=== PATIENT | female | born 2000 | race Caucasian/White ===

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

== ENCOUNTER 2021-02-11 00:03 | Emergency (ER) | payer SELFPAY ==
[2021-02-11 01:26] LABS: Urine Blood Negative (Negative); Urine Glucose Negative (Negative); Urine Protein Negative (Negative); Urine Specific Gravity 1.025 (1.005-1.030); Urine pH 6.5 (5.0-7.0)
[2021-02-11 01:29] LABS: Urine Specific Gravity/Preg 1.025 (1.005-1.030)
[2021-02-11 01:34] LABS: Absolute Lymphocytes (CBC) 2.8 K/uL (0.7-4.9); Basophils % 0.8 % (0-1.3); Hematocrit 36.5 % (36.0-45.0); Lymphocytes % 24.6 % (15.3-44.8); MPV 8.5 fL (7.6-11.3); RBC Red Blood Cell Count 4.49 M/uL (3.86-4.86)
--- NOTE | 2021-02-11 02:52 | EDPHYS ---
Physician Documentation [facility] Name: Maryanne Luna Age: 20 yrs Sex: Female : 2000 Arrival Date: 02/11/2021 Time: 00:06 Bed 20 Private MD: ED Physician Rober Hernandez HPI: 02/11 00:39 This 20 yrs old Female presents to ER via Ambulatory with complaints of Sore jmm Throat. 00:39 The patient presents with sore throat. Onset: The symptoms/episode began/occurred jmm gradually. Modifying factors: The symptoms are alleviated by nothing, the symptoms are aggravated by nothing. Associated signs and symptoms: Pertinent positives: chills, Pertinent negatives fever. Patient also complains of 1 month of vaginal bleeding with clotting. This is never happened to her before. Denies pelvic pain.. [employer]: 00:36 LMP 01/23/2021 em Historical: - Allergies: 00:36 Amoxicillin; em - PMHx: 00:36 None; em - PSHx: 00:36 Tonsillectomy; em - Immunization history:: Client reports having NOT received the Covid vaccine. - Social history:: Smoking status: Patient denies any tobacco usage or history of. ROS: 00:39 Constitutional: Negative for fever, chills, and weight loss. jmm 00:39 Cardiovascular: Negative for chest pain, palpitations, and edema, Respiratory: Negative for shortness of breath, cough, wheezing, and pleuritic chest pain. 00:39 ENT: Positive for sore throat. 00:39 : Positive for vaginal bleeding. 00:39 All other systems are negative. Exam: 00:39 Constitutional: This is a well developed, well nourished patient who is awake, alert, jmm and in no acute distress. Head/Face: atraumatic. Eyes: EOMI, no conjunctival erythema appreciated 00:39 Neck: Trachea midline, Supple Chest/axilla: Normal chest wall appearance and motion. Cardiovascular: Regular rate and rhythm. No edema appreciated Respiratory: Normal respirations, no respiratory distress appreciated Abdomen/GI: Non distended, soft Back: Normal ROM Skin: General appearance color normal MS/ Extremity: Moves all extremities, no obvious deformities appreciated, no edema noted to the lower extremities Neuro: Awake and alert, normal gait Psych: Behavior is normal, Mood is normal, Patient is cooperative and pleasant 00:39 ENT: Posterior pharynx: erythema, that is mild. Vital Signs: 00:34 BP 132 / 61; Pulse 87; Resp 18; Temp 97.7; Pulse Ox 97% on R/A; Weight 92.99 kg; Height em 6 ft. 0 in. (182.88 cm); 02:50 BP 128 / 60; Pulse 80; Resp 18; Pulse Ox 99% ; ea 00:34 Body Mass Index 27.80 (92.99 kg, 182.88 cm) em MDM: 01:14 Patient medically screened. [facility] 02:51 Data reviewed: vital signs, nurses notes. Counseling: I had a detailed discussion with [facility] the patient and/or guardian regarding: the historical points, exam findings, and any diagnostic results supporting the discharge/admit diagnosis, lab results, the need for outpatient follow up, to return to the emergency department if symptoms worsen or persist or if there are any questions or concerns that arise at home. ED course: Patient is alert nontoxic in appearance in the ED. Patient advised to follow with [employer] for vaginal bleeding. Patient has normal vital signs, H\T\H is normal. Patient is otherwise given strict return precautions. Patient understood and agrees plan of care. 02/11 00:38 Order name: Strep 02/11 00:39 Order name: Group A Streptococcus Rapid Sc; Complete Time: 02:37 EDMI 02/11 01:03 Order name: CBC with Diff; Complete Time: 01:36 em 02/11 01:25 Order name: Urine --Ancillary (enter results); Complete Time: 01:32 tt3 02/11 01:26 Order name: Urine Dipstick-Ancillary; Complete Time: 01:32 EDMI 02/11 01:17 Order name: Urine Test (obtain specimen); Complete Time: 01:25 [facility] 02/11 01:49 Order name: SARS-COV-2 RT PCR; Complete Time: 01:51 EDMI 02/11 02:22 Order name: Throat Culture EDMI Administered Medications: 02:52 Drug: Decadron - Dexamethasone 10 mg Route: IVP; Site: right antecubital; ea 03:04 Follow up: Response: No adverse reaction ea Disposition: 05:35 Co-signature as Attending Physician, Rober Hernandez MD. [email or web address] Disposition Summary: 08/22/21 02:52 Discharge Ordered Location: Home jm Condition: Stable jmm Diagnosis - Acute pharyngitis, unspecified jmm - Abnormal uterine and vaginal bleeding, unspecified jmm Followup: jmm - With: Private Physician - When: 2 - 3 days - Reason: Recheck today's complaints, Continuance of care, Re-evaluation by your physician Discharge Instructions: - Discharge Summary Sheet jmm - Abnormal Uterine Bleeding jmm - Pharyngitis jm Forms: - Medication Reconciliation Form jmm - Thank You Letter jmm - Antibiotic Education jmm - Prescription Opioid Use jmm Signatures: Dispatcher [employer] EDMS Theodore Fitzpatrick PA PA jmm Munoz, Edgar, RN RN Leonor Castro RN Rober Barnes ea, MD MD [email or web address] Corrections: (The following items were deleted from the chart) 00:37 00:36 Allergies: No Known Allergies; em em 00:47 00:39 CORONAVIRUS+MR.LAB.BRZ ordered. EDMI EDMS
--- NOTE | 2021-02-11 02:52 | ER ---
Nurse's Notes [facility] Name: Maryanne Luna Age: 20 yrs Sex: Female : 2000 Arrival Date: 02/11/2021 Time: 00:06 Bed 20 Private MD: Diagnosis: Acute pharyngitis, unspecified;Abnormal uterine and vaginal bleeding, unspecified Presentation: 02/11 00:34 Chief complaint: Patient states: sore throat for 1 week, denies fever, also reports em period for 1 month, LMP 01/23. Coronavirus screen: Client denies travel out of the [place] in the last 14 days. Ebola Screen: Patient negative for fever greater than or equal to 101.5 degrees Fahrenheit, and additional compatible Ebola Virus Disease symptoms Patient denies exposure to infectious person. Patient denies travel to an Ebola-affected area in the 21 days before illness onset. No symptoms or risks identified at this time. Initial Sepsis Screen: Does the patient meet any 2 criteria? No. Patient's initial sepsis screen is negative. Does the patient have a suspected source of infection? No. Patient's initial sepsis screen is negative. Risk Assessment: Do you want to hurt yourself or someone else? Patient reports no desire to harm self or others. Onset of symptoms was February 11, 2021. 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 - Social history:: Smoking status: Patient denies any tobacco usage or history of. Screenin:26 Abuse screen: Denies threats or abuse. Nutritional screening: No deficits noted. ea Tuberculosis screening: No symptoms or risk factors identified. Fall Risk IV access (20 points). Assessment: 00:30 General: Appears in no apparent distress. Behavior is calm, cooperative, appropriate ea for age. Neuro: Level of Consciousness is awake, alert, obeys commands, Oriented to person, place, time. Cardiovascular: Patient's skin is warm and dry. Respiratory: Airway is patent Respiratory effort is even, unlabored, Respiratory pattern is regular, symmetrical. EENT: Reports pain in throat. Derm: Skin is pink, warm \T\ dry. 02:30 Reassessment: Patient and/or family updated on plan of care and expected duration. Pain ea level reassessed. Patient is alert, oriented x 3, equal unlabored respirations, skin warm/dry/pink. 03:02 Reassessment: Patient and/or family updated on plan of care and expected duration. Pain ea level reassessed. Patient is alert, oriented x 3, equal unlabored respirations, skin warm/dry/pink. Discharge instruction given to patient verbalized the understanding of isntruction. Vital Signs: 00:34 BP 132 / 61; Pulse 87; Resp 18; Temp 97.7; Pulse Ox 97% on R/A; Weight 92.99 kg; Height em 6 ft. 0 in. (182.88 cm); 02:50 BP 128 / 60; Pulse 80; Resp 18; Pulse Ox 99% ; ea 00:34 Body Mass Index 27.80 (92.99 kg, 182.88 cm) em ED Course: 00:06 Patient arrived in ED. bp1 00:36 Triage completed. em 00:36 Arm band placed on. em 00:57 Lakshmi Chase, RN is Primary Nurse. bs2 00:59 Theodore Fitzpatrick PA is PHCP. jm 01:00 Rober Hernandez MD is Attending Physician. jmm 01:27 Patient has correct armband on for positive identification. Bed in low position. Call ea light in reach. Side rails up X2. 01:27 Inserted saline lock: 20 gauge in right antecubital area, using aseptic technique. ea Blood collected. 03:02 No provider procedures requiring assistance completed. IV discontinued, intact, ea bleeding controlled, No redness/swelling at site. Pressure dressing applied. Administered Medications: 02:52 Drug: Decadron - Dexamethasone 10 mg Route: IVP; Site: right antecubital; ea 03:04 Follow up: Response: No adverse reaction ea Outcome: 02:52 Discharge ordered by . jmdanny 03:01 Discharged to home ambulatory. ea 03:01 Condition: stable 03:01 Discharge instructions given to patient, Instructed on discharge instructions, follow up and referral plans. Demonstrated understanding of instructions, follow-up care. 03:03 Patient left the ED. ea Signatures: Theodore Fitzpatrick PA PA jmm Munoz, Edgar, RN RN Leonor Castro, RN RN Neena Ortiz Bridget, RN RN bs2 Corrections: (The following items were deleted from the chart) 00:37 00:36 Allergies: No Known Allergies; em em
[2021-02-11 03:11] VITALS: TEMP 97.7
[2021-02-11] MEDS ORDERED: dexAMETHasone 10 MG/ML VIAL ONE (03:11)
[2021-02-11 03:13] VITALS: BP 128/60; O2SAT 99
== END 2021-02-11 03:03 | disposition home or self-care (01) ==
LOC: ER 00:03
DX: J02.9 Acute pharyngitis, unspecified (principal); N93.9 Abnormal uterine and vaginal bleeding, unspecified; Z20.822 Contact with and (suspected) exposure to COVID-19; Z88.1 Allergy status to other antibiotic agents
CPT/HCPCS: 36415; 81003; 81025; 85025; 87070; 87081; 96374; 99283; J1100; U0003

== ENCOUNTER 2021-06-05 13:30 | Emergency (ER) | payer SELFPAY ==
--- NOTE | 2021-06-05 15:23 | EDPHYS ---
Physician Documentation [facility] Name: Maryanne Luna Age: 21 yrs Sex: Female : 2000 Arrival Date: 06/05/2021 Time: 13:31 Bed 11 Private MD: ED Physician Nguyễn Enrique HPI: 06/05 15:15 This 21 yrs old Female presents to ER via Ambulatory with complaints of Vomiting, Rash, jr8 Facial Swelling. 15:15 Severity of symptoms: At their worst the symptoms were mild in the emergency department jr8 the symptoms are unchanged. The patient has not experienced similar symptoms in the past. The patient has not recently seen a physician. Patient stated that she started with mild red rash to left side of neck that was itching. Denies new soaps, detergents, or products. No recent gardening or outside work. Stated that the rash has since spread to the right side of face and one portion of abdomen. Still itches but not going away with OTC meds. Had vomited last night but thinks that was from bad food. Denies fevers, arthralgias, myalgias, recent travel, or any other symptoms at this time. 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 - Social history:: Smoking status: Patient/guardian denies using. ROS: 15:15 Eyes: Negative for injury, pain, redness, and discharge, ENT: Negative for injury, jr8 pain, and discharge, Neck: Negative for injury, pain, and swelling, Cardiovascular: Negative for chest pain, palpitations, and edema, Respiratory: Negative for shortness of breath, cough, wheezing, and pleuritic chest pain, Back: Negative for injury and pain, MS/Extremity: Negative for injury and deformity, Neuro: Negative for headache, weakness, numbness, tingling, and seizure. 15:15 Abdomen/GI: Positive for nausea and vomiting, Negative for abdominal pain, diarrhea. 15:15 Skin: Positive for rash. Exam: 15:15 Head/Face: Normocephalic, atraumatic. Eyes: Pupils equal round and reactive to light, jr8 extra-ocular motions intact. Lids and lashes normal. Conjunctiva and sclera are non-icteric and not injected. Cornea within normal limits. Periorbital areas with no swelling, redness, or edema. ENT: Nares patent. No nasal discharge, no septal abnormalities noted. Tympanic membranes are normal and external auditory canals are clear. Oropharynx with no redness, swelling, or masses, exudates, or evidence of obstruction, uvula midline. Mucous membranes moist. Neck: Trachea midline, no thyromegaly or masses palpated, and no cervical lymphadenopathy. Supple, full range of motion without nuchal rigidity, or vertebral point tenderness. No Meningismus. Cardiovascular: Regular rate and rhythm with a normal S1 and S2. No gallops, murmurs, or rubs. Normal PMI, no JVD. No pulse deficits. Respiratory: Lungs have equal breath sounds bilaterally, clear to auscultation and percussion. No rales, rhonchi or wheezes noted. No increased work of breathing, no retractions or nasal flaring. Abdomen/GI: Soft, non-tender, with normal bowel sounds. No distension or tympany. No guarding or rebound. No evidence of tenderness throughout. Back: No spinal tenderness. No costovertebral tenderness. Full range of motion. MS/ Extremity: Pulses equal, no cyanosis. Neurovascular intact. Full, normal range of motion. Neuro: Awake and alert, GCS 15, oriented to person, place, time, and situation. Cranial nerves II-XII grossly intact. Motor strength 5/5 in all extremities. Sensory grossly intact. Cerebellar exam normal. Normal gait. 15:15 Skin: rash a mild rash is noted, rash can be described as erythematous, patchy, on the right side of face, left neck, and left upper abdomen , non blanchable . Vital Signs: 13:48 BP 123 / 65; Pulse 78; Resp 17; Temp 98.6; Pulse Ox 100% on R/A; Weight 95.25 kg; 6 Height 5 ft. 11 in. (180.34 cm); Pain 0/10; 15:32 BP 114 / 50; Pulse 71; Resp 18; Pulse Ox 98% on R/A; ww 13:48 Body Mass Index 29.29 (95.25 kg, 180.34 cm) [facility] MDM: 15:03 Patient medically screened. [facility] 15:15 Data reviewed: vital signs, nurses notes, and as a result, I will discharge patient. jr8 Data interpreted: Pulse oximetry: on room air is 100 %. Interpretation: normal. 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 ED course: Discussed with patient that given her lack of other symptoms. Most likely benign. Will try steroids but if she were to worsen, have new symptoms, or if it does not go away, that she needs to come back or see dermatology. . Administered Medications: No medications were administered Disposition: 16:19 Co-signature as Attending Physician, Nguyễn Enrique MD I agree with the assessment and rn plan of care. Attestation: The patient's history, exam findings, diagnostics, and a summary of any interventions or procedures was reviewed in detail with Ken LINCOLN. Disposition Summary: 06/05/21 15:23 Discharge Ordered Location: Home jr8 Problem: new jr8 Symptoms: are unchanged jr8 Condition: Stable jr8 Diagnosis - Rash and other nonspecific skin eruption jr8 Followup: jr8 - With: Private Physician - When: 1 week - Reason: Recheck today's complaints, Continuance of care, Re-evaluation by your physician Discharge Instructions: - Discharge Summary Sheet jr8 - Rash, Adult jr8 Forms: - Medication Reconciliation Form jr8 - Thank You Letter jr8 - Work release form jr8 - Antibiotic Education jr8 - Prescription Opioid Use jr8 Prescriptions: - Medrol (Kenn) 4 mg Oral Tablets, Dose Pack - take 1 tablet by ORAL route as directed - follow package instructions; 1 jr8 packet; Refills: 0, Product Selection Permitted Signatures: Nguyễn Enrique MD MD rn Roszak, Josh, PA PA jr8 Sandy Aquino RN RN jh6 Jaylyn Ortiz RN RN eo2 Corrections: (The following items were deleted from the chart) 13:51 13:50 PSHx: Tonsillectomy; [place] [id number]
--- NOTE | 2021-06-05 15:23 | ER ---
Nurse's Notes [facility] Name: Maryanne Luna Age: 21 yrs Sex: Female : 2000 Arrival Date: 06/05/2021 Time: 13:31 Bed 11 Private MD: Diagnosis: Rash and other nonspecific skin eruption Presentation: 06/05 13:48 Chief complaint: Patient states: rash to rt side of face and neck x 1wk. states that jh6 she has taken otc allergy meds but is not helping. Coronavirus screen: Vaccine status: Patient reports being unvaccinated. Ebola Screen: Patient denies travel to an Ebola-affected area in the 21 days before illness onset. No symptoms or risks identified at this time. Initial Sepsis Screen: Does the patient meet any 2 criteria? No. Patient's initial sepsis screen is negative. Does the patient have a suspected source of infection? No. Patient's initial sepsis screen is negative. Risk Assessment: Do you want to hurt yourself or someone else? Patient reports no desire to harm self or others. Onset of symptoms was May 30, 2021. 13:48 Method Of Arrival: Ambulatory [facility] 13:48 Acuity: RADHA 4 6 Triage Assessment: 13:51 General: Appears in no apparent distress. Behavior is calm, cooperative. Pain: Denies 6 pain. Derm: Rash noted that is itchy, red. 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 - Social history:: Smoking status: Patient/guardian denies using. Screenin:22 Abuse screen: Denies threats or abuse. Nutritional screening: No deficits noted. eo2 Tuberculosis screening: No symptoms or risk factors identified. Fall Risk None identified. Assessment: 15:22 General: Appears in no apparent distress. Behavior is calm, cooperative. Pain: Denies eo2 pain. Neuro: No deficits noted. Cardiovascular: No deficits noted. Heart tones S1 S2. Respiratory: No deficits noted. Breath sounds are clear bilaterally. GI: Reports vomiting, pt reports vomiting several times overnight, states she possibly ate something that wasn't properly prepared yesterday, noticed with [employer]-a food and drink in had upon being called to the room, reports she's now tolerating food. Derm: Skin is red, Rash noted that is red, on Pt noted with red raised rash to right side of face, left neck, and left upper abdomen. Per pt, itching began last and noticed rash on Friday, denies any change to diet, soaps, or lotion. Vital Signs: 13:48 BP 123 / 65; Pulse 78; Resp 17; Temp 98.6; Pulse Ox 100% on R/A; Weight 95.25 kg; [facility] Height 5 ft. 11 in. (180.34 cm); Pain 0/10; 15:32 BP 114 / 50; Pulse 71; Resp 18; Pulse Ox 98% on R/A; ww 13:48 Body Mass Index 29.29 (95.25 kg, 180.34 cm) [facility] ED Course: 13:31 Patient arrived in ED. as 13:50 Triage completed. [facility] 13:51 Arm band placed on right wrist. [facility] 14:55 Jaylyn Ortiz, DUNG is Primary Nurse. eo2 15:00 Ken Arias PA is PHCP. 8 15:00 Nguyễn Enrique MD is Attending Physician. jr8 15:22 Allergy band placed. Bed in low position. Door closed. Noise minimized. eo2 15:22 No provider procedures requiring assistance completed. Patient did not have IV access eo2 during this emergency room visit. Administered Medications: No medications were administered Outcome: 15:23 [facility]charge ordered by . [facility] 15:32 Discharged to home ambulatory, with family. ww 15:32 Condition: stable 15:32 Discharge instructions given to patient, Instructed on discharge instructions, follow up and referral plans. medication usage, safety practices, Demonstrated understanding of instructions, medications, Prescriptions given X 1. 15:36 Patient left the ED. ww Signatures: Jolanta Wallis Josh, PA PA [facility] Sandy Aquino RN RN [facility] Shania Mccartney RN RN Jaylyn Ortiz RN RN eo2 Corrections: (The following items were deleted from the chart) 13:51 13:50 PSHx: Tonsillectomy; [place] [id number]
[2021-06-05 15:41] VITALS: TEMP 98.6
[2021-06-05 15:42] VITALS: BP 114/50; O2SAT 98
== END 2021-06-05 15:36 | disposition home or self-care (01) ==
LOC: ER 13:30
DX: R21 Rash and other nonspecific skin eruption (principal)
CPT/HCPCS: 99282

== ENCOUNTER 2021-06-24 15:06 | Emergency (ER) | payer SELFPAY ==
[2021-06-24 17:07] LABS: SARS-COV-2 RT PCR NEGATIVE (NEGATIVE)
--- NOTE | 2021-06-24 17:48 | ER ---
Nurse's Notes [facility] Name: Maryanne Luna Age: 21 yrs Sex: Female : 2000 Arrival Date: 06/24/2021 Time: 15:09 Bed 10 Private MD: Diagnosis: Acute pharyngitis, unspecified Presentation: 06/24 15:51 Chief complaint: Patient states: sore throat sine Friday. Coronavirus screen: Vaccine iw status: Patient reports being unvaccinated. Ebola Screen: No symptoms or risks identified at this time. Initial Sepsis Screen: Does the patient meet any 2 criteria? No. Patient's initial sepsis screen is negative. Does the patient have a suspected source of infection? No. Patient's initial sepsis screen is negative. Risk Assessment: Do you want to hurt yourself or someone else? Patient reports no desire to harm self or others. Onset of symptoms was June 22, 2021. 15:51 Method Of Arrival: Ambulatory iw 15:51 Acuity: RADHA 4 iw Triage Assessment: 15:55 General: Appears in no apparent distress. Behavior is calm. Pain: Denies pain. EENT: iw Reports SORE THROAT. 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 - Social history:: Smoking status: Patient reports the use of cigarette tobacco products, Patient denies any tobacco usage or history of. Vital Signs: 15:51 BP 105 / 92; Pulse 97; Resp 16; Temp 97.2(TE); Pulse Ox 100% on R/A; Weight 95.25 kg; iw Height 5 ft. 11 in. (180.34 cm); 15:51 Body Mass Index 29.29 (95.25 kg, 180.34 cm) iw ED Course: 15:09 Patient arrived in ED. mr 15:47 Jonny Olivares NP is PHCP. pm1 15:47 Thomas Reilly MD is Attending Physician. pm1 15:48 PHCP role handed off by Jonny Olivares NP [facility] 15:48 Theodore Fitzpatrick PA is PHCP. [facility] 15:48 Jonny Olivares NP is PHCP. [facility] 15:54 Triage completed. iw 18:19 Eliane Thibodeaux, RN is Primary Nurse. iw Administered Medications: 18:19 Drug: Decadron (dexamethasone) 10 mg Route: IM; Site: right ventrogluteal; iw 18:30 Follow up: Response: No adverse reaction iw Outcome: 17:47 Discharge ordered by MD. pm1 18:26 Patient left the ED. iw Signatures: Theodore Fitzpatrick PA PA [facility] mr Eliane Thibodeaux RN RN iw Jonny Olivares NP JEWELRY MANAGER pm1
--- NOTE | 2021-06-24 17:49 | EDPHYS ---
Physician Documentation [facility] Name: Maryanne Luna Age: 21 yrs Sex: Female : 2000 Arrival Date: 06/24/2021 Time: 15:09 Bed 10 Private MD: ED Physician Thomas Reilly HPI: 06/24 15:53 This 21 yrs old Female presents to ER via Unassigned with complaints of Sore Throat. pm1 15:53 The patient presents with sore throat. The patient describes throat pain as raw, pm1 scratchy. Onset: The symptoms/episode began/occurred 3 day(s) ago. Severity of symptoms: in the emergency department the symptoms are unchanged. Modifying factors: The symptoms are alleviated by over the counter medications, NSAIDs, the symptoms are aggravated by swallowing, Patient's oral intake status: good unaware of sick contact. Associated signs and symptoms: Pertinent positives: headache, resolved. The patient has experienced similar episodes in the past, multiple times, today's symptoms are similar, to previous strep pharyngitis. The patient has not recently seen a physician. 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 - Social history:: Smoking status: Patient reports the use of cigarette tobacco products, Patient denies any tobacco usage or history of. ROS: 15:53 Constitutional: Negative for fever, chills, and weight loss. pm1 15:53 Cardiovascular: Negative for chest pain, palpitations, and edema, Respiratory: Negative for shortness of breath, cough, wheezing, and pleuritic chest pain, Abdomen/GI: Negative for abdominal pain, nausea, vomiting, diarrhea, and constipation, MS/Extremity: Negative for injury and deformity, Skin: Negative for injury, rash, and discoloration. 15:53 ENT: Positive for sore throat, Negative for ear pain, sinus congestion, sinus pain. 15:53 All other systems are negative. 15:53 Neuro: Negative for headache, weakness, numbness, tingling, and seizure. pm1 Exam: 15:53 Constitutional: This is a well developed, well nourished patient who is awake, alert, pm1 and in no acute distress. Head/Face: Normocephalic, atraumatic. 15:53 Skin: Warm, dry with normal turgor. Normal color with no rashes, no lesions, and no evidence of cellulitis. MS/ Extremity: Pulses equal, no cyanosis. Neurovascular intact. Full, normal range of motion. 15:53 ENT: Mouth: no acute changes, Lips: normal, moist, Oral mucosa: normal, pink and intact, moist, Posterior pharynx: Airway: no evidence of obstruction, Tonsils: bilaterally enlarged, with erythema, with exudate, no ulcerations, peritonsillar mass, is not appreciated, pooling of secretions, is not appreciated. 15:53 Cardiovascular: Exam negative for acute changes, Rate: normal, Rhythm: regular, Pulses: no pulse deficits are appreciated. 15:53 Respiratory: Exam negative for acute changes, respiratory distress, shortness of breath. 15:53 Neuro: Exam negative for acute changes, Orientation: is normal, Mentation: is normal, Motor: is normal, moves all fours. Vital Signs: 15:51 BP 105 / 92; Pulse 97; Resp 16; Temp 97.2(TE); Pulse Ox 100% on R/A; Weight 95.25 kg; iw Height 5 ft. 11 in. (180.34 cm); 15:51 Body Mass Index 29.29 (95.25 kg, 180.34 cm) iw MDM: 16:32 Data reviewed: vital signs. Data interpreted: Pulse oximetry: on room air is 100 %. pm1 Interpretation: normal. 16:32 Differential diagnosis: mononucleosis, peritonsillar abscess pharyngitis, tonsillitis, pm1 upper respiratory infection. 16:48 Patient medically screened. pm1 17:45 Counseling: I had a detailed discussion with the patient and/or guardian regarding: the pm1 historical points, exam findings, and any diagnostic results supporting the discharge/admit diagnosis, lab results, the need for outpatient follow up. 06/24 15:53 Order name: Strep; Complete Time: 17:45 pm1 06/24 15:53 Order name: COVID-19/FLU A+B (Document "Date of Onset" if Symptomatic); Complete Time: pm1 17:45 06/24 17:11 Order name: Throat Culture EDMS Administered Medications: 18:19 Drug: Decadron (dexamethasone) 10 mg Route: IM; Site: right ventrogluteal; iw 18:30 Follow up: Response: No adverse reaction iw Disposition: 18:54 Co-signature as Attending Physician, Thomas Reilly MD I agree with the assessment and kdr plan of care. Disposition Summary: 06/24/21 17:47 Discharge Ordered Location: Home pm1 Problem: new pm1 Symptoms: have improved pm1 Condition: Stable pm1 Diagnosis - Acute pharyngitis, unspecified pm1 Followup: pm1 - With: Emergency Department - When: As needed - Reason: Worsening of condition Followup: pm1 - With: Private Physician - When: 2 - 3 days - Reason: Recheck today's complaints, Continuance of care, Re-evaluation by your physician Discharge Instructions: - Discharge Summary Sheet pm1 - Pharyngitis pm1 Forms: - Medication Reconciliation Form pm1 - Thank You Letter pm1 - Antibiotic Education pm1 - Prescription Opioid Use pm1 Signatures: Dispatcher [employer] EDMT Thomas Reilly MD MD kdr Eliane Thibodeaux RN RN iw Jonny Olivares NP MATERIAL CREW SUPERVISOR pm1 Corrections: (The following items were deleted from the chart) 15:57 15:53 Onset: The symptoms/episode began/occurred 3 day(s) ago, pm1 pm1 15:57 15:53 Onset: The symptoms/episode began/occurred 10 day(s) ago, pm1 pm1 15:57 15:53 ENT: Positive for sinus congestion, sinus pain, Negative for sore throat, pm1 pm1 15:57 15:53 Neuro: Positive for headache, of the right side of forehead and right eye, pm1 pm1
[2021-06-24] MEDS ORDERED: dexAMETHasone 10 MG/ML VIAL ONE (18:15)
[2021-06-24 18:32] VITALS: BP 105/92; TEMP 97.2; O2SAT 100
== END 2021-06-24 18:26 | disposition home or self-care (01) ==
LOC: ER 15:06
DX: J02.9 Acute pharyngitis, unspecified (principal); Z20.822 Contact with and (suspected) exposure to COVID-19; Z72.0 Tobacco use
CPT/HCPCS: 0240U; 87070; 87081; 96372; 99282; J1100

== ENCOUNTER 2022-03-18 10:19 | Emergency (ER) | payer SELFPAY ==
--- NOTE | 2022-03-18 10:40 | ER ---
Nurse's Notes [facility] Name: Maryanne Luna Age: 22 yrs Sex: Female : 2000 Arrival Date: 03/18/2022 Time: 10:23 Bed Waiting Private MD: Diagnosis: Encounter for general adult medical examination without abnormal findings Presentation: 03/18 10:37 Chief complaint: Patient states: Sick on Friday N/V/D, symptoms resolved completely by jl7 yesterday, needs a note to return to work. Coronavirus screen: At this time, the client does not indicate any symptoms associated with coronavirus-19. Ebola Screen: No symptoms or risks identified at this time. Initial Sepsis Screen: Does the patient meet any 2 criteria? No. Patient's initial sepsis screen is negative. Does the patient have a suspected source of infection? No. Patient's initial sepsis screen is negative. Risk Assessment: Do you want to hurt yourself or someone else? Patient reports no desire to harm self or others. Onset of symptoms was March 15, 2022. 10:37 Method Of Arrival: Ambulatory jl7 10:37 Acuity: RADHA 5 jl7 Triage Assessment: 10:39 General: Appears in no apparent distress. comfortable, Behavior is calm, cooperative, jl7 appropriate for age. Pain: Denies pain. GI: Reports symptoms resolved. 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 - Social history:: Smoking status: Patient denies any tobacco usage or history of. Screenin:35 Abuse screen: Denies threats or abuse. Denies injuries from another. Nutritional jl7 screening: No deficits noted. Tuberculosis screening: No symptoms or risk factors identified. Fall Risk None identified. Assessment: 10:35 Reassessment: ANTONIO Delgado in triage assessing pt. jl7 Vital Signs: 10:37 BP 119 / 69; Pulse 93; Resp 17; Temp 98.4; Pulse Ox 100% ; Weight 95.25 kg; Height 6 jl7 ft. (182.88 cm); Pain 0/10; 10:37 Body Mass Index 28.48 (95.25 kg, 182.88 cm) jl7 ED Course: 10:23 Patient arrived in ED. am2 10:26 [facility] jh[facility] 10:26 Kenneth Trevino DO is Attending Physician. jh7 10:35 Patient has correct armband on for positive identification. jl7 10:35 No provider procedures requiring assistance completed. Patient did not have IV access jl7 during this emergency room visit. 10:39 Triage completed. jl7 10:39 Arm band placed on right wrist. jl7 11:00 Deni Richardson, RN is Primary Nurse. jl7 Administered Medications: No medications were administered Medication: 10:35 VIS not applicable for this client. jl7 Outcome: 10:39 Discharge ordered by . 7 11:01 Discharged to home ambulatory. jl7 11:01 Condition: stable 11:01 Discharge instructions given to patient, Instructed on discharge instructions, follow up and referral plans. Demonstrated understanding of instructions, follow-up care. 11:01 Patient left the ED. jl7 Signatures: Deni Richardson, RN RN jl7 Lauren Dickerson am2 Sandy Gorman FNP FNP [facility]
--- NOTE | 2022-03-18 10:40 | EDPHYS ---
Physician Documentation [facility] Name: Maryanne Luna Age: 22 yrs Sex: Female : 2000 Arrival Date: 03/18/2022 Time: 10:23 Bed Waiting Private MD: ED Physician Kenneth Trevino HPI: 03/18 10:40 This 22 yrs old Female presents to ER via Ambulatory with complaints of Vomiting. jh7 10:40 This 22 yrs old Female presents to ER via Ambulatory with complaints of Needing a work jh7 note. 10:40 That she had a stomach bug a few days ago, feels fine now, but is required to get a jh7 note to return to work. She has no symptoms at this time.. 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 - Social history:: Smoking status: Patient denies any tobacco usage or history of. ROS: 10:40 Constitutional: Negative for fever, chills, and weight loss, Eyes: Negative for injury, jh7 pain, redness, and discharge, Cardiovascular: Negative for chest pain, palpitations, and edema, Respiratory: Negative for shortness of breath, cough, wheezing, and pleuritic chest pain, Abdomen/GI: Negative for abdominal pain, nausea, vomiting, diarrhea, and constipation, Skin: Negative for injury, rash, and discoloration, Neuro: Negative for headache, weakness, numbness, tingling, and seizure. 10:40 All other systems are negative. Exam: 10:40 Constitutional: This is a well developed, well nourished patient who is awake, alert, jh7 and in no acute distress. Head/Face: Normocephalic, atraumatic. Cardiovascular: Regular rate and rhythm with a normal S1 and S2. No gallops, murmurs, or rubs. Normal PMI, no JVD. No pulse deficits. Respiratory: Lungs have equal breath sounds bilaterally, clear to auscultation and percussion. No rales, rhonchi or wheezes noted. No increased work of breathing, no retractions or nasal flaring. Skin: Warm, dry with normal turgor. Normal color with no rashes, no lesions, and no evidence of cellulitis. Neuro: Awake and alert, GCS 15, oriented to person, place, time, and situation. Normal gait. Vital Signs: 10:37 BP 119 / 69; Pulse 93; Resp 17; Temp 98.4; Pulse Ox 100% ; Weight 95.25 kg; Height 6 jl7 ft. (182.88 cm); Pain 0/10; 10:37 Body Mass Index 28.48 (95.25 kg, 182.88 cm) [facility] MDM: 10:34 Patient medically screened. [facility] 10:40 Differential diagnosis: Normal exam. Data reviewed: vital signs, nurses notes. Data [facility] interpreted: Pulse oximetry: is 100 %. Interpretation: normal. Counseling: I had a detailed discussion with the patient and/or guardian regarding: the historical points, exam findings, and any diagnostic results supporting the discharge/admit diagnosis, to return to the emergency department if symptoms worsen or persist or if there are any questions or concerns that arise at home. Administered Medications: No medications were administered Disposition: 03/19 08:25 Co-signature as Attending Physician, Kenneth Trevino DO I was immediately available on-site ms3 in the Emergency Department for consultation in the care of the patient. . Disposition Summary: 03/18/22 10:39 Discharge Ordered Location: Home [facility] Problem: new [facility] Symptoms: are resolved [facility] Condition: Stable [facility] Diagnosis - Encounter for general adult medical examination without abnormal findings [facility] Followup: [facility] - With: Private Physician - When: As needed - Reason: Discharge Instructions: - Discharge Summary Sheet [facility] - Form - Return To Work [facility] Forms: - Medication Reconciliation Form [facility] - Thank You Letter [facility] - Work release form [facility] Signatures: Deni Richardson RN RN jl7 Sims, Marcus, DO DO ms3 Sandy Gorman FNP APARTMENT MAINTENANCE [facility]
[2022-03-20 12:22] VITALS: BP 119/69; TEMP 98.4; O2SAT 100
== END 2022-03-18 11:01 | disposition home or self-care (01) ==
LOC: ER 10:19
DX: Z02.79 Encounter for issue of other medical certificate (principal)
CPT/HCPCS: 99281